=== PATIENT | female | born 1955 | race Caucasian/White ===

== ENCOUNTER → 2017-03-04 | Outpatient (CLI) | payer OTHER ==
--- NOTE | 2017-03-04 17:39 | RAD ---
DATE: 03/04/2017 EXAM: DIGITAL SCREEN BILAT W/CAD HISTORY: Screening study. COMPARISON: 01/30/2016 This study was interpreted with the benefit of Computerized Aided Detection (CAD). FINDINGS: Digital MLO and CC mammograms of both breasts were obtained. Comparison study is dated 01/30/2016. The breast parenchyma is heterogeneously dense which can obscure a lesion on mammography (breast density code C). Benign-appearing calcifications are seen within both breasts. No spiculated mass is seen. No malignant appearing calcification or area of architectural distortion is noted. Since the previous examination there has been no significant interval change. IMPRESSION: BI-RADS Category 1, negative. There is no mammographic evidence of malignancy. Routine yearly screening mammography is recommended for follow-up. BI-RADS CATEGORY: 1 NEGATIVE RECOMMENDED FOLLOW-UP: 12M 12 MONTH FOLLOW-UP PQRS compliance statement: Patient information was entered into a reminder system with a target due date 03/04/2018 for the next mammogram. Mammography is a sensitive method for finding small breast cancers, but it does not detect them all and is not a substitute for careful clinical examination. A negative mammogram does not negate a clinically suspicious finding and should not result in delay in biopsying a clinically suspicious abnormality. "Our facility is accredited by the [employer] Mammography Program."
== END | disposition home or self-care (01) ==
LOC: MAMMO 09:13
PROVIDERS: ATTEND Obstetrics & Gynecology
DX: Z12.31 Encounter for screening mammogram for malignant neoplasm of breast (principal)
CPT/HCPCS: G0202; 77067

== ENCOUNTER 2017-09-28 20:14 | Emergency (ER) | payer OTHER ==
[~2017-09-28] VITALS: Ht 162.6 cm; Wt 79.4 kg
[2017-09-28 21:40] VITALS: BP 162/63
[2017-09-28] MEDS ORDERED: DIPH25CA58 PO (21:46)
[2017-09-28] MEDS ORDERED: FAMO-63 PO (21:46)
--- NOTE | 2017-09-28 21:47 | PHYS DOC ---
Adult General Chief Complaint Chief Complaint: ALLERGIC REACTION HPI HPI Patient is a 62-year-old female who presents with complaints of allergic reaction that started today. Patient denies any throat swelling, difficulty swallowing, respiratory distress, shortness of air. Patient describes some redness in the upper extremities and small amount of hives. Symptoms were already improving but, no arrival to the emergency department. Patient has had previous allergic reactions but had testing for allergies was a long time ago. Review of Systems Review of Systems Constitutional: Denies fever or chills [] Eyes: Denies change in visual acuity, redness, or eye pain [] HENT: Denies nasal congestion or sore throat, no throat swelling, no facial swelling Respiratory: Denies cough or shortness of breath [] Cardiovascular: No chest pain GI: Denies abdominal pain, nausea, vomiting, Musculoskeletal: Denies back pain or joint pain [] Integument: Redness of the upper extremities, small scattered hives. No petechia , no desquamation Neurologic: Denies headache, focal weakness or sensory changes [] All other systems were reviewed and found to be within normal limits, except as documented in this note. Current Medications Current Medications Current Medications Medications (Trade) Dose Ordered Sig/Suresh Start Time Stop Time Status Last Admin Dose Admin Dexamethasone (Decadron) 8 mg 1X ONCE 09/28/17 21:45 09/28/17 21:46 UNV Allergies Allergies Allergies Coded Allergies Type Severity Reaction Last Updated Verified ferrous fumarate Allergy Severe 09/28/17 Yes ferrous gluconate Allergy Severe 09/28/17 Yes folic acid Allergy Severe 09/28/17 Yes lutein Allergy Severe 09/28/17 Yes lycopene Allergy Severe 09/28/17 Yes multivit with calcium, iron, and other minerals Allergy Severe 09/28/17 Yes multivitamin Allergy Severe 09/28/17 Yes multivitamin with iron,other minerals Allergy Severe 09/28/17 Yes multivitamin with minerals Allergy Severe 09/28/17 Yes terbinafine Allergy Severe 09/28/17 Yes Physical Exam Physical Exam Constitutional: Well developed, well nourished, no acute distress, non-toxic appearance. [] HENT: Normocephalic, atraumatic, bilateral external ears normal, oropharynx moist, no oral exudates, nose normal. Airways patent, no drooling Eyes: A, EOMI, conjunctiva normal, no discharge. [] Neck: Normal range of motion, no tenderness, supple, no stridor. No swelling Cardiovascular: Equal pulses, normal perfusion Lungs & Thorax: Bilateral breath sounds clear to auscultation , no tachypnea, no wheezing, no rales, no rhonchi[] Abdomen: No distention Skin: Warm, dry, no petechia, no desquamation. Diffuse erythema bilateral upper extremities, small hives abdomen Back: No tenderness, skin without lesions or rashes. Extremities: No tenderness, no DVT, ROM intact, no edema. [] Neurologic: Alert and oriented X 3, normal motor function, normal speech, no focal deficits noted. [] Psychologic: Affect normal, judgement normal, mood normal. [] EKG EKG [] Radiology/Procedures Radiology/Procedures [] Course & Med Decision Making Course & Med Decision Making Pertinent Labs and Imaging studies reviewed. (See chart for details) [] Dragon Disclaimer Dragon Disclaimer This electronic medical record was generated, in whole or in part, using a voice recognition dictation system. 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
[2017-09-28] MEDS ORDERED: DEXAMETHASONE 4 MG TABLET PO ONE (22:00)
== END 2017-09-28 21:52 | disposition home or self-care (01) ==
LOC: ER 20:14
DX: T78.40XA Allergy, unspecified, initial encounter (principal); Z88.8 Allergy status to other drugs, medicaments and biological substances; X58.XXXA Exposure to other specified factors, initial encounter
CPT/HCPCS: 99283; J8540